=== PATIENT | female | born 1985 | race Caucasian/White ===

== ENCOUNTER → 2018-06-28 | Outpatient (CLI) | payer OTHER ==
--- NOTE | 2018-06-28 16:23 | NEURO WORKBENCH EEG REPORT ---
EEG Report Patient: Tammy Sam ID: [id number] Referring Doctor: Jamal Polanco MD DOS: 06/28/2018 Medications: Adderall, Tylenol History This is a 32 year old right handed woman with a history of migraines, sinus headaches, seasonal asthma and abnormal movements with speech and visual disturbance. This EEG was requested for abnormal movements. EEG Interpretation This EEG was recorded in the awake, drowsy, and sleep states. The awake EEG is characterized by a fairly well organized background but without a well developed posterior dominant rhythm (PDR). A briefly noted PDR of 10 Hz as seen. There was excessive beta activity noted. There was also excessive artifact that impaired interpretation. The remainder of the background consisted of alpha and beta with some theta. Drowsiness is characterized by slowing of the background rhythms. Vertex waves and sleep spindles were briefly seen in the midline head regions. Photic stimulation resulted in a very good driving response. Hyperventilation resulted in high amplitude generalized slowing of the background. There were no epileptiform abnormalities. The EKG showed a regular rhythm. EEG Impression This EEG is within normal limits for age. There was excessive beta activity which can be seen with certain medications or possibly indicative of an unrelaxed state. INTERPRETING NEUROLOGIST: Yvette Meeks MD, FRCPC Board Certified in Neurology, with special qualification in Child Neurology, and in Clinical Neurophysiology [facility]
== END ==
LOC: NEURO 08:07
PROVIDERS: ATTEND Pediatrics
DX: R25.8 Other abnormal involuntary movements (principal); R47.9 Unspecified speech disturbances; H53.9 Unspecified visual disturbance
CPT/HCPCS: 95819